=== PATIENT | male | born 1960 | race Caucasian/White ===

== ENCOUNTER 2017-05-23 02:26 | Emergency (ER) | payer OTHER ==
[~2017-05-23] VITALS: Ht 190.5 cm; Wt 86.2 kg
[2017-05-23] MEDS ORDERED: predniSONE 50 MG TABLET PO ONE (04:00)
[2017-05-23] MEDS ORDERED: IBUPROFEN 800 MG TABLET PO ONE (04:00)
[2017-05-23] MEDS ORDERED: AMOXICILLIN-CLAVUL 875-125MG TABLET PO ONE (04:00)
[2017-05-23] MEDS ORDERED: AMOXICILLIN-CLAVUL 875-125MG TABLET ONE (04:01)
[2017-05-23] MEDS ORDERED: predniSONE 50 MG TABLET ONE (04:01)
[2017-05-23] MEDS ORDERED: IBUPROFEN 800 MG TABLET ONE (04:02)
--- NOTE | 2017-05-23 04:05 | NUR ---
Ela harris in ED - 05/23/17 at 0405 by [email or web address] Patient discharged to home in stable conditon. Written and verbal after care instructions given. Patient verbalizes understanding of instructions.
--- NOTE | 2017-05-23 04:06 | NUR ---
Patient given written and verbal discharge instructions. Patient verbalizes understanding of instructions. Patient is ambulatory with steady gait. Refuses offer of long-term placement. Patient given list of available shelters in surrounding area.
== END 2017-05-23 04:06 | disposition home or self-care (01) ==
LOC: ER 02:30
DX: J01.00 Acute maxillary sinusitis, unspecified (principal); F17.200 Nicotine dependence, unspecified, uncomplicated
CPT/HCPCS: A4663; J7512